=== PATIENT | male | born 1990 | race Caucasian/White ===

== ENCOUNTER → 2018-03-06 | Outpatient (CLI) | payer OTHER ==
--- NOTE | 2018-03-07 11:19 | MR ---
EXAMINATION TYPE: MR lumbar spine wo con DATE OF EXAM: 03/06/2018 COMPARISON: Plain films 03/04/2018 HISTORY: Intervertebral disc degeneration, lumbar CONTRAST: 0 mL intravenous Gadavist. TECHNIQUE: Multiplanar, multisequence images of the lumbar spine were acquired. FINDINGS: Cord terminates at the L1 level. There is some facet hypertrophy contributing to minimal left foraminal stenosis at the L4-5 level. No focal disc herniations are evident. Disc hydration levels disc heights are preserved. Vertebral cezar dy heights are preserved. Alignment is normal. IMPRESSION: 1. Essentially normal MRI lumbar spine.
== END | disposition home or self-care (01) ==
LOC: RADMRIMAIN 08:32
PROVIDERS: ATTEND Family Medicine
DX: M51.36 Other intervertebral disc degeneration, lumbar region (principal)
CPT/HCPCS: 72148

== ENCOUNTER → 2018-04-12 | Outpatient (CLI) | payer OTHER ==
--- NOTE | 2018-04-12 17:59 | US ---
EXAMINATION TYPE: US duplex aorta DATE OF EXAM: 04/12/2018 COMPARISON: NONE CLINICAL HISTORY: 27-year-old male R10.9 Severe ABDOMINAL PAIN. TECHNIQUE: Multiple sonographic images of the kidneys and bladder are obtained. FINDINGS: EXAM MEASUREMENTS: Abdominal Aorta: Proximal: 1.9cm Mid: 1.6cm Distal: 1.3cm Bifurcation: Right: 0.9cm Left: obscured by bowel gas Materials Director notes: Some portions obscured by overlying bowel gas, portions visualized wnl. IMPRESSION: Bowel gas limiting visualization of some segments of the abdominal aorta. No evidence for AAA.
--- NOTE | 2018-04-12 18:04 | US ---
EXAMINATION TYPE: US kidneys/renal and bladder DATE OF EXAM: 04/12/2018 COMPARISON: NONE CLINICAL HISTORY: 27-year-old male N20.2 Bilateral kidney stone;. TECHNIQUE: Multiple sonographic images of the kidneys and bladder are obtained. EXAM MEASUREMENTS: Right Kidney: 11.0 x 4.4 x 4.9 cm Left Kidney: 11.5 x 4.9 x 5.0 cm No hydronephrosis on either side. No sonographically appreciable renal calculus is seen. Bladder: wnl Bilateral Jets seen: Yes There is no evidence IMPRESSION: No hydronephrosis or discrete renal calculus appreciated by ultrasound.
== END | disposition home or self-care (01) ==
LOC: RADUSWWP 15:19
PROVIDERS: ATTEND Family Medicine
DX: R10.9 Unspecified abdominal pain (principal)
CPT/HCPCS: 76770; 93979

== ENCOUNTER → 2018-04-26 | Outpatient (CLI) | payer OTHER ==
--- NOTE | 2018-04-26 17:09 | MR ---
MR thoracic spine HISTORY: Back pain Multiplanar multisequence imaging obtained through the thoracic spine Thoracic vertebral bodies show preserved height and alignment. There is mild endplate discogenic navya ow signal change, spondylosis at the mid thoracic level. There is mild spinal curvature. Disc spaces are maintained. Thoracic cord signal is normal. There is no significant central canal stenosis, libby inal encroachment. T7-8 shows a minimal posterior disc bulge causing only slight anterior mass effect on the thecal sac. T8-9 and T9-10 also shows small central posterior disc bulges. IMPRESSION: Mild spinal curvature. Mild degenerative disc disease.
== END | disposition home or self-care (01) ==
LOC: RADMRIMAIN 14:41
PROVIDERS: ATTEND Family Medicine
DX: M51.34 Other intervertebral disc degeneration, thoracic region (principal); M43.8X4 Other specified deforming dorsopathies, thoracic region
CPT/HCPCS: 72146

== ENCOUNTER 2018-06-30 04:58 | Emergency (ER) | payer OTHER ==
--- NOTE | 2018-06-30 05:12 | ED ---
General Adult HPI - General Chief complaint: Extremity Injury, Lower Stated complaint: L Hip pain Time Seen by Provider: 06/30/18 05:12 Source: patient, family Mode of arrival: ambulatory Limitations: no limitations - History of Present Illness Initial comments: is a 27-year-old male with a history of chronic low back and hip pain who presents the ED today for evaluation of left-sided hip pain. Patient reports that these recently been diagnosed with ankylosing spondylitis, he's undergone multiple MRIs of his spine as well as blood tests and is following with her landscape account manager that the plan to initiate treatment with Humira. Patient reports he scheduled for an outpatient MRI of the sacroiliac joints due to chronic pain. Patient reports that he still with pain chronically for a number of years been worse for the past 8-10 months. Patient reports that tonight he experienced deep aching pain in his left hip which kept him awake. So he came to the ER for evaluation and because he feels too fatigued to go to work today. - Related Data Home Medications Medication Instructions Recorded Confirmed Indomethacin [Indocin] 50 mg PO BID 06/30/18 06/30/18 traMADol HCL [Ultram] 50 mg PO Q6HR PRN 06/30/18 06/30/18 Allergies Allergy/AdvReac Type Severity Reaction Status Date / Time No Known Allergies Allergy Verified 06/30/18 05:07 Review of Systems ROS Statement: Those systems with pertinent positive or pertinent negative responses have been documented in the HPI. ROS Other: All systems not noted in ROS Statement are negative. Past Medical History Additional Past Medical History / Comment(s): back pain - ankylosing spondylitis History of Any Multi-Drug Resistant Organisms: None Reported Past Surgical History: No Surgical Hx Reported Past Psychological History: No Psychological Hx Reported Smoking Status: Never smoker Past Alcohol Use History: None Reported Past Drug Use History: None Reported General Exam - General Exam Comments Initial Comments: Physical Exam GENERAL: Patient is well-developed and well-nourished. Patient is nontoxic and well- hydrated and is in no distress. HENT: Normocephalic, Atraumatic. EYES: PERRL, EOMI PULMONARY: Unlabored respirations. No audible rales rhonchi or wheezing was noted. CARDIOVASCULAR: There is a regular rate and rhythm without any murmurs gallops or rubs. ABDOMEN: Soft and nontender with normal bowel sounds. SKIN: Skin is clear with no lesions or rashes and otherwise unremarkable. : Normal sternal exam, normal testicular exam, no testicular swelling or redness, no palpable inguinal hernias NEUROLOGIC: Patient is alert and oriented x3. Moving all extremities spontaneously MUSCULOSKELETAL: Normal extremities with adequate strength No lower extremity swelling or edema. No calf tenderness. Decreased internal and external rotation of bilateral hips, No erythema or swelling or redness of either hip, range of motion is equally restricted bilaterally PSYCHIATRIC: Normal psychiatric evaluation. Limitations: no limitations Limitations: no limitations Course Vital Signs 06/30/18 06/30/18 05:02 06:41 Temperature 98.3 F 98.2 F Pulse Rate 97 62 Respiratory 18 16 Rate Blood Pressure 136/96 129/77 O2 Sat by Pulse 98 99 Oximetry Medical Decision Making - Medical Decision Making The patient was seen and evaluated, history was obtained from the patient excited patient has a history of chronic back and hip pain presenting today with exacerbation of his hip pain. Patient denies any trauma or injury Patient recently diagnosed with autoimmune disease currently not on any medication Patient to follow up with rheumatology after MRI at the sacroiliac joints Physical exam with no acute findings, patient has decreased range of motion of the bilateral hips, left is not greater than right. His pain with range of motion of bilateral hips, no erythema or redness of the hip and no suspicion for septic joint at this time. Patient has no Sirs criteria on exam. Exam reveals no hernias or pain or abnormality in the testicles At this time I feel the patient's having exacerbation of his chronic pain, we' ll treat with Toradol. Patient is agreeable to this. I discussed with the patient that he may need steroids or biologic's for treatment of his pain however I don't give these medications until he follows up with rheumatology and has since testing completed. Patient is agreeable this plan. All questions pertaining care answered patient discharged home in stable condition. Disposition Clinical Impression: Chronic hip pain Disposition: HOME SELF-CARE Condition: Good Instructions: Sacroiliitis (ED) Is patient prescribed a controlled substance at d/c from ED?: No Referrals: Teodoro Feliz MD [Primary Care Provider] - 1-2 days
[2018-06-30] MEDS ORDERED: KETOROLAC 30 MG/ML 1 ML VIAL IM STA (06:15)
[2018-06-30 06:47] VITALS: BP 129/77; PULSE 62; RESP 16; TEMP 98.2
== END 2018-06-30 06:47 | disposition home or self-care (01) ==
LOC: EC 04:58
DX: G89.29 Other chronic pain (principal); M25.552 Pain in left hip; M35.9 Systemic involvement of connective tissue, unspecified; M45.9 Ankylosing spondylitis of unspecified sites in spine; R53.83 Other fatigue; Z79.1 Long term (current) use of non-steroidal anti-inflammatories (NSAID)
CPT/HCPCS: 99283; 96372; J1885

== ENCOUNTER → 2018-07-06 | Outpatient (CLI) | payer OTHER ==
--- NOTE | 2018-07-07 01:07 | MR ---
EXAMINATION TYPE: MR sacroiliac joints wo/w con DATE OF EXAM: 07/06/2018 COMPARISON: HISTORY: Chronic back pain CONTRAST: Standard multiplanar, multisequence MRI departmental protocol utilizing 9 mL intravenous Gadavist olivia olinium contrast. FINDINGS: There is a patchy symmetrical edema involving the lateral masses of the sacrum. There is al so mild edema on the iliac bones adjacent to the inferior sacroiliac joint. I see no fracture line. J oint spaces are normal. Contrast images show progressive enhancement of the lateral mass of the sacru m on the right side. There is some mild nodular enhancement of the sacroiliac joints on the delayed images. IMPRESSION: The exam shows delayed enhancement in the sacroiliac joints bilaterally and the lateral mass of the s acrum on the right side consistent with active sacroiliitis. There is edema in the lateral masses of the sacrum bilaterally.
== END | disposition home or self-care (01) ==
LOC: RADMRIMAIN 06:09
PROVIDERS: ATTEND Internal Medicine Rheumatology
DX: M46.1 Sacroiliitis, not elsewhere classified (principal); M48.8X8 Other specified spondylopathies, sacral and sacrococcygeal region; M45.5 Ankylosing spondylitis of thoracolumbar region
CPT/HCPCS: 72197; A9585

== ENCOUNTER 2021-08-31 17:01 | Emergency (ER) | payer OTHER ==
[2021-08-31] MEDS ORDERED: SODIUM CHLORIDE 0.9% 1,000 ML IV STA (17:22)
--- NOTE | 2021-08-31 17:26 | ED ---
General Adult HPI - General Chief complaint: Arrhythmia/Palpitations Stated complaint: Increased heart rate Time Seen by Provider: 08/31/21 17:18 Source: patient, RN notes reviewed, old records reviewed Mode of arrival: ambulatory Limitations: no limitations - History of Present Illness Initial comments: 31-year-old male, alert and oriented, presents to the emergency room with complaints of increased heart rate. States it started a couple hours after cutting wood today. He states when he went in to shower he felt sudden onset of rapid heart rate and feeling jittery. He states he still just doesn't feel right. Denies any pain, no fevers, nausea, vomiting, diarrhea or shortness of breath. He has never had this happen before. Does not take any medication on a daily basis. He is a nonsmoker. No history of sudden cardiac or cardiac disease in the family that he is aware of. -: hour(s) (2) Location: chest Radiation: non-radiation Severity scale (1-10): 0 Associated Symptoms: other (jittery) Treatments Prior to Arrival: none - Related Data Home Medications Medication Instructions Recorded Confirmed Adalimumab [Humira(Cf) Pen] 40 mg SQ Q14D 08/31/21 08/31/21 Allergies Allergy/AdvReac Type Severity Reaction Status Date / Time No Known Allergies Allergy Verified 08/31/21 18:34 Review of Systems ROS Statement: Those systems with pertinent positive or pertinent negative responses have been documented in the HPI. ROS Other: All systems not noted in ROS Statement are negative. Past Medical History Additional Past Medical History / Comment(s): back pain - ankylosing spondylitis History of Any Multi-Drug Resistant Organisms: None Reported Past Surgical History: No Surgical Hx Reported Past Psychological History: No Psychological Hx Reported Smoking Status: Former smoker Past Alcohol Use History: Occasional Past Drug Use History: None Reported General Exam Limitations: no limitations General appearance: alert, in no apparent distress Head exam: Present: atraumatic Eye exam: Present: normal appearance. Absent: scleral icterus, conjunctival injection ENT exam: Present: normal exam, normal oropharynx, mucous membranes moist Neck exam: Present: normal inspection. Absent: tenderness, meningismus, lymphadenopathy Respiratory exam: Present: normal lung sounds bilaterally. Absent: respiratory distress, wheezes, rales, rhonchi, stridor, chest wall tenderness, accessory muscle use, decreased breath sounds Cardiovascular Exam: Present: regular rate. Absent: JVD GI/Abdominal exam: Present: soft Back exam: Present: normal inspection, full ROM. Absent: tenderness, CVA tenderness (R), CVA tenderness (L), rash noted Neurological exam: Present: alert, oriented X3 Psychiatric exam: Present: anxious Skin exam: Present: warm, dry, intact, normal color. Absent: rash, cyanosis, diaphoretic, petechiae, pallor Course Vital Signs 08/31/21 08/31/21 08/31/21 17:06 17:18 18:36 Temperature 98.1 F Pulse Rate 110 H 84 Pulse Rate [ 102 H Customer Service Administrator ] Respiratory 18 16 Rate Blood Pressure 156/89 130/70 O2 Sat by Pulse 99 99 Oximetry 08/31/21 19:48 Temperature 98.8 F Pulse Rate 78 Pulse Rate [ Customer Service Administrator ] Respiratory 15 Rate Blood Pressure 123/75 O2 Sat by Pulse 100 Oximetry EKG Findings - EKG Results: EKG: sinus rhythm (Ventricular rate 99, OH interval 0.148, QRS 0.88, QTc 0.436) Medical Decision Making - Medical Decision Making 31-year-old male presents with complaints of increased heart rate today and feeling jittery. States it started a couple hours after cutting wood today. He did state that he did feel a little anxious. CBC and electrolytes are unremarkable. Troponin is negative at 0.012 and EKG shows sinus rhythm, no ectopy. Glucose is 144. Urinalysis is negative for ketones or signs of infection. Chest x-ray shows right basilar atelectasis without acute cardiopulmonary disease or process. Lungs sounds are clear to auscultation. Oxygen saturation 100%. She was afebrile. Patient was monitored in the emergency room with no signs of ectopy on the monitor but continues to state that he feels funny sensation in his chest. He was referred to follow up with his primary care doctor. I have a low suspicion for an acute cardiac process. I did tell him to return to the emergency room with any new, worsening or concerning symptoms. Vital signs are stable at discharge. Case discussed with Dr. Ashraf. - Lab Data Result diagrams: 08/31/21 17:29 08/31/21 17:29 Lab Results 08/31/21 08/31/21 08/31/21 Range/Units 17:29 17:29 17:29 WBC 7.6 (3.8-10.6) k/uL RBC 5.23 (4.30-5.90) m/uL Hgb 16.2 (13.0-17.5) gm/dL Hct 46.9 (39.0-53.0) % MCV 89.6 (80.0-100.0) fL MCH 31.0 (25.0-35.0) pg MCHC 34.6 (31.0-37.0) g/dL RDW 13.2 (11.5-15.5) % Plt Count 225 (150-450) k/uL MPV 7.0 Neutrophils % 65 % Lymphocytes % 24 % Monocytes % 4 % Eosinophils % 4 % Basophils % 0 % Neutrophils # 4.9 (1.3-7.7) k/uL Lymphocytes # 1.9 (1.0-4.8) k/uL Monocytes # 0.3 (0-1.0) k/uL Eosinophils # 0.3 (0-0.7) k/uL Basophils # 0.0 (0-0.2) k/uL PT 11.2 (9.0-12.0) sec INR 1.0 (<1.2) APTT 24.4 (22.0-30.0) sec Sodium (137-145) mmol/L Potassium (3.5-5.1) mmol/L Chloride (98-107) mmol/L Carbon Dioxide (22-30) mmol/L Anion Gap mmol/L BUN (9-20) mg/dL Creatinine (0.66-1.25) mg/dL Est GFR (CKD-EPI)AfAm (>60 ml/min/1.73 sqM) Est GFR (CKD-EPI)NonAf (>60 ml/min/1.73 sqM) Glucose (74-99) mg/dL Calcium (8.4-10.2) mg/dL Magnesium (1.6-2.3) mg/dL Total Bilirubin (0.2-1.3) mg/dL AST (17-59) U/L ALT (4-49) U/L Alkaline Phosphatase (38-126) U/L Troponin I (0.000-0.034) ng/mL Total Protein (6.3-8.2) g/dL Albumin (3.5-5.0) g/dL Urine Color Light Yellow Urine Appearance Clear (Clear) Urine pH 6.0 (5.0-8.0) Ur Specific Hellier 1.010 (1.001-1.035) Urine Protein Negative (Negative) Urine Glucose (UA) Negative (Negative) Urine Ketones Negative (Negative) Urine Blood Negative (Negative) Urine Nitrite Negative (Negative) Urine Bilirubin Negative (Negative) Urine Urobilinogen <2.0 (<2.0) mg/dL Ur Leukocyte Esterase Negative (Negative) 08/31/21 08/31/21 Range/Units 17:29 17:29 WBC (3.8-10.6) k/uL RBC (4.30-5.90) m/uL Hgb (13.0-17.5) gm/dL Hct (39.0-53.0) % MCV (80.0-100.0) fL MCH (25.0-35.0) pg MCHC (31.0-37.0) g/dL RDW (11.5-15.5) % Plt Count (150-450) k/uL MPV Neutrophils % % Lymphocytes % % Monocytes % % Eosinophils % % Basophils % % Neutrophils # (1.3-7.7) k/uL Lymphocytes # (1.0-4.8) k/uL Monocytes # (0-1.0) k/uL Eosinophils # (0-0.7) k/uL Basophils # (0-0.2) k/uL PT (9.0-12.0) sec INR (<1.2) APTT (22.0-30.0) sec Sodium 138 (137-145) mmol/L Potassium 3.9 (3.5-5.1) mmol/L Chloride 101 (98-107) mmol/L Carbon Dioxide 25 (22-30) mmol/L Anion Gap 12 mmol/L BUN 15 (9-20) mg/dL Creatinine 1.09 (0.66-1.25) mg/dL Est GFR (CKD-EPI)AfAm >90 (>60 ml/min/1.73 sqM) Est GFR (CKD-EPI)NonAf 89 (>60 ml/min/1.73 sqM) Glucose 144 H (74-99) mg/dL Calcium 9.6 (8.4-10.2) mg/dL Magnesium 1.7 (1.6-2.3) mg/dL Total Bilirubin 0.9 (0.2-1.3) mg/dL AST 41 (17-59) U/L ALT 72 H (4-49) U/L Alkaline Phosphatase 67 (38-126) U/L Troponin I <0.012 (0.000-0.034) ng/mL Total Protein 8.2 (6.3-8.2) g/dL Albumin 5.0 (3.5-5.0) g/dL Urine Color Urine Appearance (Clear) Urine pH (5.0-8.0) Ur Specific Hellier (1.001-1.035) Urine Protein (Negative) Urine Glucose (UA) (Negative) Urine Ketones (Negative) Urine Blood (Negative) Urine Nitrite (Negative) Urine Bilirubin (Negative) Urine Urobilinogen (<2.0) mg/dL Ur Leukocyte Esterase (Negative) Disposition Clinical Impression: Palpitations Disposition: HOME SELF-CARE Condition: Good Instructions (If sedation given, give patient instructions): Heart Palpitations (ED) Additional Instructions: Increase your fluid intake. Follow-up with the primary care doctor next week. Return to the emergency room with any new or concerning symptoms Is patient prescribed a controlled substance at d/c from ED?: No Referrals: Teodoro Feliz MD [REFERRING] - 1-2 days Time of Disposition: 19:22
[2021-08-31 17:47] LABS: Basophils % (A) 0 %; Eosinophils # (A) 0.3 k/uL (0-0.7); Eosinophils % (A) 4 %; HCT 46.9 % (39.0-53.0); HGB 16.2 gm/dL (13.0-17.5); Lymphocytes # (A) 1.9 k/uL (1.0-4.8); Lymphocytes % (A) 24 %; MCHC 34.6 g/dL (31.0-37.0); MCV 89.6 fL (80.0-100.0); Monocytes # (A) 0.3 k/uL (0-1.0); Monocytes % (A) 4 %; Neutrophils # (A) 4.9 k/uL (1.3-7.7); Neutrophils % (A) 65 %; Platelet Count 225 k/uL (150-450); RBC 5.23 m/uL (4.30-5.90); RDW 13.2 % (11.5-15.5); WBC 7.6 k/uL (3.8-10.6)
--- NOTE | 2021-08-31 17:54 | XR ---
EXAMINATION TYPE: XR chest 2V DATE OF EXAM: 08/31/2021 5:46 PM COMPARISON:None TECHNIQUE: Frontal and lateral views of the chest. CLINICAL INDICATION:Male, 31 years old with history of dysrhythmia; FINDINGS: Lungs/Pleura: Bibasilar atelectasis. No evidence for pneumothorax pleural effusion or focal consolida tion. Pulmonary vascularity: Unremarkable. Heart/mediastinum: Cardiomediastinal silhouette is unremarkable. Musculoskeletal: No acute osseous pathology. IMPRESSION: Bibasilar atelectasis without acute cardiopulmonary disease/process.
[2021-08-31 17:57] LABS: ALT 72 U/L (4-49); AST 41 U/L (17-59); African American GFR (CKD) >90 (>60 ml/min/1.73 sqM); Alkaline Phosphatase 67 U/L (38-126); Anion Gap 12 mmol/L; Blood Urea Nitrogen 15 mg/dL (9-20); Calcium 9.6 mg/dL (8.4-10.2); Carbon Dioxide 25 mmol/L (22-30); Chloride 101 mmol/L (98-107); Glucose 144 mg/dL (74-99); Magnesium 1.7 mg/dL (1.6-2.3); Non-African American GFR(CKD) 89 (>60 ml/min/1.73 sqM); Potassium 3.9 mmol/L (3.5-5.1); Sodium 138 mmol/L (137-145); Total Bilirubin 0.9 mg/dL (0.2-1.3); Total Protein 8.2 g/dL (6.3-8.2)
[2021-08-31 18:21] LABS: Partial Thromboplastin Time 24.4 sec (22.0-30.0); Prothrombin Time 11.2 sec (9.0-12.0)
[2021-08-31 19:19] LABS: Appearance,Urine Clear (Clear); Bilirubin,Urine Negative (Negative); Blood,Urine Negative (Negative); Color,Urine Light Yellow; Glucose,Urine (UA) Negative (Negative); Ketones,Urine Negative (Negative); Leukocyte Esterase,Urine Negative (Negative); Nitrite,Urine Negative (Negative); Protein,Urine Negative (Negative); Urobilinogen,Urine <2.0 mg/dL (<2.0)
[2021-08-31 19:58] VITALS: BP 123/75; PULSE 78; RESP 15; TEMP 98.8
== END 2021-08-31 19:58 | disposition home or self-care (01) ==
LOC: EC 17:01
DX: R00.2 Palpitations (principal); Z87.891 Personal history of nicotine dependence
CPT/HCPCS: 36415; 71046; 80053; 81003; 83735; 84484; 85025; 85610; 85730; 93005; 96360; 96361; 99285